=== PATIENT | male | born 1985 | race African-American/Black ===

== ENCOUNTER 2023-09-22 08:10 | Day surgery (SDC) | payer OTHER ==
[2023-09-22] MEDS ORDERED: Nozin Nasal Sanitizer NASBOTH ONE (08:30)
[2023-09-22] MEDS ORDERED: Lactated Ringers 1,000 ML IV SCH (08:30)
[2023-09-22 08:37] LABS: HEMATOCRIT 37.5 % (38.4-49.7); MEAN CORPUSCULAR HEMOGLOBIN 28.9 pg (31.6-35.5); MEAN CORPUSCULAR HGB CONC 34.7 g/dL (31.6-35.5); MEAN CORPUSCULAR VOLUME 83.3 fL (81.4-99.0); RED BLOOD CELL COUNT 4.5 M/uL (4.14-5.76); WHITE BLOOD CELL COUNT,WBC 4.9 K/uL (3.2-11.0)
[2023-09-22] MEDS ORDERED: Bupivacaine 0.5% 30 ML SDV ONE (08:43)
[2023-09-22 08:52] LABS: CALCIUM 8.5 mg/dL (8.5-10.1); CREATININE 0.9 mg/dL (0.8-1.3); EST CRCL DRUG DOSING (CG) 128.12 mL/min; POTASSIUM,K 4.1 mmol/L (3.6-5.2)
[2023-09-22 08:54] LABS: ANION GAP 14.1 mmol/L (5.0-14.0)
[2023-09-22] MEDS ORDERED: ceFAZolin 2 GM in Sodium Chloride 0.9% 50 ML IV ONE (09:15)
[2023-09-22] MEDS ORDERED: Propofol 200 MG/20 ML SDV ONE (10:21)
[2023-09-22] MEDS ORDERED: Glycopyrrolate 0.2 MG/ML 5 ML MDV ONE (10:21)
[2023-09-22] MEDS ORDERED: Rocuronium 50 MG/5 ML Vial ONE (10:21)
[2023-09-22] MEDS ORDERED: Dexamethasone 4 MG/ML SDV ONE (10:21)
[2023-09-22] MEDS ORDERED: Neostigmine Methylsulfate 1 MG/ML 5 ML Syringe ONE (10:21)
[2023-09-22] MEDS ORDERED: Succinylcholine 200 MG/10 ML MDV ONE (10:21)
[2023-09-22] MEDS ORDERED: Ondansetron 4 MG/2 ML SDV ONE (10:21)
[2023-09-22] MEDS ORDERED: fentaNYL 250 MCG/5 ML SDV ONE ×2 (10:22→10:36)
[2023-09-22] MEDS ORDERED: Sugammadex Sodium 200 MG/2 ML VIAL ONE (10:56)
[2023-09-22] MEDS ORDERED: Acetaminophen/oxyCODONE 325-5 MG Tab PO PRN ×2 (11:44→12:55)
== END 2023-09-22 14:05 | disposition home or self-care (01) ==
LOC: JP.SDS 08:10
PROVIDERS: ATTEND Specialist
DX: S82.51XA Displaced fracture of medial malleolus of right tibia, initial encounter for closed fracture (principal); X58.XXXA Exposure to other specified factors, initial encounter
CPT/HCPCS: 27766; 36415; 76000; 80048; 85027; A9270; C1713; J0330; J0690; J1100; J2405; J2704; J2710; J3010; J3490; J7120